=== PATIENT | male | born 1975 | race Caucasian/White ===

== ENCOUNTER 2017-01-16 11:45 | Emergency (ER) | payer OTHER ==
[2017-01-16 12:11] VITALS: BP 113/76; RESP 18
[2017-01-16] MEDS ORDERED: Naproxen 550 mg Tab PO STA (12:55)
--- NOTE | 2017-01-16 12:55 | C.PDOC ---
History Of Present Illness A 42 y/o male c/o pain to the lateral aspect of left knee for the last 7 days. Pain radiates to the left foot. Denies trauma, injury, fever, chills, decrease ROM, weakness, numbness, or any other complaints. 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 Time Seen by Provider: 01/16/17 12:20 Chief Complaint (Nursing): Lower Extremity Problem/Injury History Per: Patient History/Exam Limitations: no limitations Onset/Duration Of Symptoms: Days Current Symptoms Are (Timing): Still Present Severity: Mild Recent travel outside of the [place]: No Additional History Per: Patient Past Medical History Reviewed: Historical Data, Nursing Documentation, Vital Signs Vital Signs: Last Vital Signs Temp 98 F 01/16/17 13:18 Pulse 77 01/16/17 13:18 Resp 18 01/16/17 13:18 BP 113/76 01/16/17 12:04 Pulse Ox 96 01/16/17 13:53 Surgical History: Appendectomy Family History: States: Unknown Family Hx - Social History Hx Alcohol Use: No Hx Substance Use: No Review Of Systems Except As Marked, All Systems Reviewed And Found Negative. Constitutional: Negative for: Fever, Chills, Other (Trauma, injury) Gastrointestinal: Negative for: Nausea, Vomiting Musculoskeletal: Positive for: Leg Pain (Left knee pain). Negative for: Other ( Decrease ROM) Neurological: Negative for: Weakness, Numbness, Other (LOC) Physical Exam - Physical Exam Appears: Non-toxic, No Acute Distress Skin: Warm, Dry Head: Atraumatic, Normacephalic Extremity: Normal ROM, Tenderness (Point tenderness to the lateral aspect of the left knee), No Pedal Edema, No Calf Tenderness, Capillary Refill (<2secs), No Deformity Extremity: Bilateral: Normal Color And Temperature Pulses: Left Dorsalis Pedis: Normal, Right Dorsalis Pedis: Normal Neurological/Psych: Oriented x3, Normal Motor, Normal Sensation, Other (No focal deficit) ED Course And Treatment O2 Sat by Pulse Oximetry: 96 (RA) Pulse Ox Interpretation: Normal Medical Decision Making Medical Decision Makin yo M presents for atraumatic L knee pain for the past few days. Pt arrived to the ER ambulatory. Based on history and exam, likely over use syndrome. Plans: -Anaprox -Biju wrap Biju wrap was applied to the L knee, pt was instructed to R.I.C.E. left knee and to follow up with ortho referral if symptoms continues to persist. Disposition - Disposition Referrals: Keenan Armijo III, MD [Staff Provider] - Disposition: HOME/ ROUTINE Disposition Time: 12:53 Condition: STABLE Prescriptions: Meloxicam [Mobic] 15 mg PO DAILY #30 tab Instructions: Knee Pain (ED) Forms: Work Excuse Print Language: MONEGASQUE - Clinical Impression Clinical Impression: Knee pain, left - Scribe Statement The provider has reviewed the documentation as recorded by the Scribe Maribel andrade All medical record entries made by the Scribe were at my direction and personally dictated by me. I have reviewed the chart and agree that the record accurately reflects my personal performance of the history, physical exam, medical decision making, and the department course for this patient. I have also personally directed, reviewed, and agree with the discharge instructions and disposition.
[2017-01-16] MEDS ORDERED: Naproxen 550 mg Tab PO ONE (13:17)
[2017-01-16 13:19] VITALS: PULSE 77; TEMP 98
[2017-01-16 13:51] VITALS: O2SAT 96
== END 2017-01-16 13:18 | disposition home or self-care (01) ==
LOC: C.ER 11:45
DX: M25.562 Pain in left knee (principal)